=== PATIENT | female | born 1965 | race Caucasian/White ===

== ENCOUNTER 2022-08-25 00:05 | Outpatient (CLI) | payer MEDICARE, SELFPAY ==
[2022-08-25] MEDS: Inhaler, Assist Device 1 EACH MC (11:16)
[2022-08-25] MEDS: Albuterol HFA 18 GM 200 PUFF INH IH (11:16)
--- NOTE | 2022-08-25 15:20 | W.PFT ---
Date of service: 08/25/22 Time of Service: 10:00 Pulmonary Function Test Result Requesting Provider Devora Murphy Indications: Severe asthma Interpretation Spirometry: There is no airflow limitation. The FVC is low. There technically no significant bronchodilator response, however the FVC did improve by 210cc. Lung Volumes: There is air trapping. Diffusion Capacity: Normal diffusion. Airway Pressure: Increased airways resistance. Impression No chronic obstruction. Air trapping and increased airways resistance consistent with history of asthma. The low FVC is likely pseudo-restriction from an elevated BMI. Clinical Correlation therefore is recommended.
== END 2022-08-25 00:06 | disposition home or self-care (01) ==
LOC: RT 00:05
PROVIDERS: PCP Registered Nurse; Visit Provider Registered Nurse
DX: J45.50 Severe persistent asthma, uncomplicated (principal)
CPT/HCPCS: 94060; 94726; 94729

== ENCOUNTER → 2023-04-10 12:29 | Outpatient (BNVA) | payer MEDICARE, SELFPAY | PROVIDERS: PCP Registered Nurse; Referring Provider Registered Nurse; Visit Provider Physician Assistant Surgical | DX: J45.909 Unspecified asthma, uncomplicated (principal); Z79.51 Long term (current) use of inhaled steroids; Z79.899 Other long term (current) drug therapy | CPT/HCPCS: 99214 ==

== ENCOUNTER → 2023-10-26 11:20 | Outpatient (BNVA) | payer MEDICARE, SELFPAY | PROVIDERS: PCP Registered Nurse; Referring Provider Registered Nurse; Visit Provider Student in an Organized Health Care Education/Training Program | DX: J45.909 Unspecified asthma, uncomplicated (principal); T78.40XA Allergy, unspecified, initial encounter | CPT/HCPCS: 99214 ==